=== PATIENT | male | born 2005 | race Caucasian/White ===

== ENCOUNTER 2023-03-07 13:53 | Emergency (ER) | payer SELFPAY | END 2023-03-07 16:03 | disposition home or self-care (01) | LOC: EDBD → MW.ED 13:53 | DX: S87.81XA Crushing injury of right lower leg, initial encounter (principal); W23.1XXA Caught, crushed, jammed, or pinched between stationary objects, initial encounter | CPT/HCPCS: 73590-26-RT; 73590-RT; 73610-26-RT; 73610-RT; 73630-26-RT; 73630-RT; 99283 ==